=== PATIENT | female | born 1970 | race Caucasian/White ===

== ENCOUNTER 2019-04-27 10:53 | Outpatient (CLI) | payer BC ==
--- NOTE | 2019-04-27 13:21 | BD ---
Exam: DEXA Bone Density 04/27/19 HISTORY: Other disorder of bone density and structure. Lumbar Spine: BMD (g/cm2) T-SCORE L1 0.847 -1.3 L2 0.940 0.8 L3 0.961 -1.1 L4 0.847 =1.9 L1-L4 0.898 -1.4 Left Femoral Neck: 0.669 -1.6 Total Femur: 0.768 -1.4 Impression: Osteopenia of the lumbar spine and left femoral neck. POS: OFF
== END 2019-04-27 10:54 | disposition home or self-care (01) ==
LOC: BICMAMMO 10:53
PROVIDERS: ATTEND Family Medicine
DX: M85.89 Other specified disorders of bone density and structure, multiple sites (principal)
CPT/HCPCS: 77080

== ENCOUNTER 2023-10-18 10:16 | Outpatient (CLI) | payer BC | END 2023-10-18 10:17 | disposition home or self-care (01) | LOC: BICMAMMO 10:16 | PROVIDERS: ATTEND Obstetrics & Gynecology | DX: Z12.31 Encounter for screening mammogram for malignant neoplasm of breast (principal); Z80.3 Family history of malignant neoplasm of breast | CPT/HCPCS: 77063; 77067 ==